=== PATIENT | female | born 1995 | race Two or more races ===

== ENCOUNTER 2022-03-20 04:11 | Emergency (ER) | payer MEDICAID ==
[~2022-03-20] VITALS: Ht 160 cm; Wt 54.4 kg
[2022-03-20 06:35] LABS: Urine Bacteria FEW /hpf (None Seen); Urine Blood Negative /uL (Negative); Urine Mucus FEW (None Seen); Urine Specific Gravity 1.007 (1.001-1.035); Urine WBC 1 /hpf (0 - 5)
[2022-03-20 06:44] LABS: Amphetamine Screen, Urine NEGATIVE (NEGATIVE); Barbiturate Scree,Urine NEGATIVE (NEGATIVE); Benzodiazephine Screen, Urine NEGATIVE (NEGATIVE); Cocaine Screen, Urine NEGATIVE (NEGATIVE); Opiate Scree,Urine NEGATIVE (NEGATIVE); Phencyclidine Screen, Urine NEGATIVE (NEGATIVE)
[2022-03-20 06:53] LABS: Cannabinoid Screen, Urine POSITIVE (NEGATIVE)
[2022-03-20 07:02] LABS: Basophils # (auto) 0 10 ^3/uL (0-0.2); Basophils % (auto) 0.1 % (0.0-2.0); Eosinophils # (auto) 0 10 ^3/uL (0-0.8); Hematocrit 41.4 % (36.0-46.0); Lymphocytes # (auto) 1.4 10 ^3/uL (0.4-5.4); Lymphocytes % (auto) 6.1 % (10.0-50.0); Mean Corpuscular Hemoglobin 30.7 pg (28.0-32.0); Mean Corpuscular Hgb Conc. 33.7 g/dL (32.0-36.0); Monocytes # (auto) 0.8 10 ^3/uL (0-1.3); Monocytes % (auto) 3.7 % (0.0-12.0); Neutrophils # (auto) 20.1 10 ^3/uL (1.6-8.6); Neutrophils % (auto) 90.1 % (37.0-80.0); Nucleated Red Blood Cells % 0.1 %; Red Blood Cells 4.55 10^6/uL (4.0-5.20); Red Cell Distribution Width 12.6 % (11.8-14.3); White Blood Cell 22.3 10^3/uL (4.4-10.8)
[2022-03-20 07:23] LABS: Albumin 4.5 g/dL (3.4-5.0); Calcium 8.6 mg/dL (8.5-10.1)
[2022-03-20 07:24] LABS: Lactic Acid w/Reflex 2.3 mmol/L (0.4-2.0)
[2022-03-20 07:27] LABS: BUN/Creatinine Ratio 14.1; Bilirubin, Total 0.3 mg/dL (0.2-1.0)
[2022-03-20] MEDS ORDERED: LIDOCAINE 2%HCL (LOCAL ANESTH.) INJ 10ml MDV IJ ONE (08:00)
[2022-03-20] MEDS ORDERED: KETOROLAC TROMETH 30 MG/ML 1ML VIAL IV ONE (09:30)
[2022-03-20 10:48] VITALS: BP 119/78
[2022-03-20] MEDS ORDERED: CEFD300C2 PO (12:04)
[2022-03-20] MEDS ORDERED: BACI1OIN45 EX (12:04)
[2022-03-20] MEDS ORDERED: NAP500T PO (12:04)
== END 2022-03-20 12:32 | disposition home or self-care (01) ==
LOC: EDBD 04:11 → ER 04:11
DX: S51.011A Laceration without foreign body of right elbow, initial encounter (principal); S00.03XA Contusion of scalp, initial encounter; S00.81XA Abrasion of other part of head, initial encounter; S60.812A Abrasion of left wrist, initial encounter; M62.838 Other muscle spasm; F12.10 Cannabis abuse, uncomplicated; D72.829 Elevated white blood cell count, unspecified; J45.909 Unspecified asthma, uncomplicated; V89.2XXA Person injured in unspecified motor-vehicle accident, traffic, initial encounter; Y93.89 Activity, other specified; Y92.410 Unspecified street and highway as the place of occurrence of the external cause; Y99.8 Other external cause status; Y90.6 Blood alcohol level of 120-199 mg/100 ml
CPT/HCPCS: 12002; 36415; 70450; 71045; 72125; 73080; 80053; 80307; 81001; 81025; 83605; 84484; 84702; 85025; 93005; 96374; 99285; J1885; J2001

== ENCOUNTER 2022-04-04 16:16 | Emergency (ER) | payer MEDICAID ==
[~2022-04-04] VITALS: Ht 160 cm; Wt 56.7 kg
[~2022-04-04 16:16] MED LIST: BACI1OIN45 EX; CEFD300C2 PO; NAP500T PO
[2022-04-04 16:38] VITALS: BP 107/70
== END 2022-04-04 20:20 | disposition left against medical advice (07) ==
LOC: ER 16:16
DX: S51.011D Laceration without foreign body of right elbow, subsequent encounter (principal); J45.909 Unspecified asthma, uncomplicated; Z79.899 Other long term (current) drug therapy; V89.2XXD Person injured in unspecified motor-vehicle accident, traffic, subsequent encounter